=== PATIENT | female | born 1975 | race Caucasian/White ===

== ENCOUNTER 2021-11-13 20:15 | Emergency (ER) | payer BC ==
[2021-11-13] MEDS ORDERED: Dexamethasone 10 MG/ML VIAL ONE (21:12)
[2021-11-13] MEDS ORDERED: Ibuprofen 200 MG TAB ONE (21:14)
== END 2021-11-13 21:33 | disposition home or self-care (01) ==
LOC: BURERS 20:15
DX: J02.9 Acute pharyngitis, unspecified (principal)
CPT/HCPCS: 87081; 87430; 96372; 99283; J1100